=== PATIENT | female | born 1960 | race Caucasian/White ===

== ENCOUNTER 2016-10-07 13:12 | Inpatient (IN) | payer BC, OTHER ==
[~2016-10-07] VITALS: Ht 157.5 cm; Wt 74.0 kg
[2016-10-07] MEDS ORDERED: SOD CHLORIDE 0.9% 1,000 ML IV STA (13:30)
[2016-10-07] MEDS ORDERED: HYDROmorphONE 1 MG/ML SYG IV STA (13:54)
[2016-10-07] MEDS ORDERED: HYDR-906 PO (13:56)
[2016-10-07] MEDS ORDERED: OMEP20CA16 PO (13:56)
[2016-10-07 13:59] LABS: ADD SCAN DIFF NO
[2016-10-07 14:03] LABS: BASOPHIL # 0.1 10^3/ul (0.0-0.1); BASOPHILS % 0.4 % (0.0-2.0); EOSINOPHILS % 0.2 % (0.0-7.0); HEMATOCRIT 38.8 % (37.0-47.0); HEMOGLOBIN 13.1 g/dl (12.0-16.0); LYMPHOCYTES # 3.2 10^3/ul (0.8-2.9); LYMPHOCYTES % 22.9 % (15.0-51.0); MEAN CORPUSCULAR HEMOGLOBIN 29.3 pg (29.0-33.0); MEAN CORPUSCULAR HGB CONC 33.8 g/dl (32.0-37.0); MEAN CORPUSCULAR VOLUME 86.8 fl (82.0-101.0); MEAN PLATELET VOLUME 9.9 fl (7.4-10.4); MONOCYTE # 0.9 10^3/ul (0.3-0.9); MONOCYTES % 6.4 % (0.0-11.0); NEUTROPHIL # 9.6 10^3/ul (1.6-7.5); NEUTROPHILS % 69.7 % (39.0-77.0); PLATELET COUNT 278 10^3/UL (140-415); RED BLOOD COUNT 4.47 10^6/ul (4.20-5.40); RED CELL DISTRIBUTION WIDTH 13.7 % (11.5-14.5); WHITE BLOOD COUNT 13.8 10^3/ul (4.8-10.8)
[2016-10-07] MEDS ORDERED: ONDANSETRON 4 MG INJ IV STA (14:08)
[2016-10-07 14:11] LABS: ALBUMIN 3.9 g/dl (3.3-4.9); CHLORIDE 105 mmol/L (97-110); INR 1.01; PROTIME 13.3 Sec (12.2-14.2)
[2016-10-07 14:12] LABS: POTASSIUM 3.8 mmol/L (3.5-5.1); SODIUM 138 mmol/L (135-144)
[2016-10-07 14:14] LABS: ALBUMIN/GLOBULIN RATIO 1.02; ALKALINE PHOSPHATASE 80 IU/L (42-121); ANION GAP 13 (8-16); ASPARTATE AMINO TRANSFERASE 17 IU/L (15-46); BILIRUBIN,INDIRECT 0.4 mg/dl (0-1.1); BILIRUBIN,TOTAL 0.4 mg/dl (0.2-1.3); BLOOD UREA NITROGEN 6 mg/dl (7-20); CARBON DIOXIDE 24 mmol/L (21-31); CREATININE 0.68 mg/dl (0.44-1.00); TOTAL PROTEIN 7.7 g/dl (6.1-8.1)
[2016-10-07 14:15] LABS: ALANINE AMINOTRANSFERASE 14 IU/L (13-69); CALCIUM 8.8 mg/dl (8.4-10.2); GLUCOSE 98 mg/dl (70-220)
--- NOTE | 2016-10-07 14:23 | ERA ---
ER Documentation Chief Complaint Date/Time DATE: 10/07/16 TIME: 14:20 Chief Complaint low abd pain pelvic pain for 2 day,vag bleed and dysuria. mild fever HPI 56-year-old woman brought in by family members for generalized weakness and dizziness 2-3 days. She said suprapubic abdominal pain which has been severe and has had postmenopausal vaginal bleeding daily for the last 4-5 days. She also complains of dysuria for the last 2 days. She has had low-grade fevers at home, no other vaginal discharge, no loss of consciousness no complaints of chest pain or shortness of breath, no weight loss. Patient is otherwise generally healthy. ROS All systems reviewed and are negative except as per history of present illness. Medications Home Meds Reported Medications Omeprazole* (Omeprazole*) 20 Mg Capsule.dr, 20 MG PO AC BREAKFAST, #30 CAP 10/07/16 Hydrocodone/Acetaminophen ([place] 5-325 Tablet) 1 Each Tablet, 1 EACH PO Q4H WHILE AWAKE, TAB 10/07/16 Allergies Allergies: Coded Allergies: No Known Allergy (Unverified , 10/07/16) PMhx/Soc None Medical and Surgical Hx: pt denies Medical Hx, pt denies Surgical Hx Hx Alcohol Use: No Hx Substance Use: No Hx Tobacco Use: No Smoking Status: Never smoker FmHx Family History: No diabetes Physical Exam Vitals Vital Signs Date Time Temp Pulse Resp B/P Pulse Ox O2 Delivery O2 Flow Rate FiO2 10/07/16 16:00 98.9 78 20 105/83 97 Room Air 10/07/16 13:16 100.0 105 21 127/76 99 Physical Exam GENERAL: Well-developed, well-nourished, dehydrated, in moderate discomfort HEENT: Dry mucous membranes, pale conjunctiva, no cervical spine tenderness or step-off deformities, no goiter, no jaundice or icterus, extraocular movements intact without pain. No submandibular induration, and no pharyngeal erythema NEURO: Alert and oriented 3, cranial nerves II through XII intact bilaterally, pupils equal round reactive to light, no focal deficits or facial asymmetry, sensation intact distally Strength 5/5 in upper and lower extremities bilaterally CARDIAC: Regular rate and rhythm, no murmurs rubs or gallops LUNGS: Clear bilaterally no wheezing crackles or stridor ABDOMEN: Soft nontender, no guarding, no rigidity, no rebound, no psoas sign no obturator sign. Normoactive bowel sounds SKIN: Warm and dry to touch, no abrasions, contusions, or hematomas, no lacerations, no ecchymosis, no target lesions, and without ulcers EXTREMITIES: No clubbing cyanosis or edema, calves are bilaterally symmetrical, no Homans sign, no popliteal cord sign. Distal pulses equal and bilateral PSYCH: Normal affect without agitation or irritability Result Diagram: 10/07/16 1350 10/07/16 1350 Results 24 hrs Laboratory Tests Test 10/07/16 13:50 10/07/16 15:07 White Blood Count 13.810^3/ul Red Blood Count 4.4710^6/ul Hemoglobin 13.1g/dl Hematocrit 38.8% Mean Corpuscular Volume 86.8fl Mean Corpuscular Hemoglobin 29.3pg Mean Corpuscular Hemoglobin Concent 33.8g/dl Red Cell Distribution Width 13.7% Platelet Count 58627^3/UL Mean Platelet Volume 9.9fl Neutrophils % 69.7% Lymphocytes % 22.9% Monocytes % 6.4% Eosinophils % 0.2% Basophils % 0.4% Nucleated Red Blood Cells % 0.0/100WBC Neutrophils # 9.610^3/ul Lymphocytes # 3.210^3/ul Monocytes # 0.910^3/ul Eosinophils # 0.010^3/ul Basophils # 0.110^3/ul Nucleated Red Blood Cells # 0.010^3/ul Prothrombin Time 13.3Sec Prothrombin Time Ratio 1.0 INR International Normalized Ratio 1.01 Sodium Level 138mmol/L Potassium Level 3.8mmol/L Chloride Level 105mmol/L Carbon Dioxide Level 24mmol/L Anion Gap 13 Blood Urea Nitrogen 6mg/dl Creatinine 0.68mg/dl Glucose Level 98mg/dl Calcium Level 8.8mg/dl Total Bilirubin 0.4mg/dl Direct Bilirubin 0.00mg/dl Indirect Bilirubin 0.4mg/dl Aspartate Amino Transf (AST/SGOT) 17IU/L Alanine Aminotransferase (ALT/SGPT) 14IU/L Alkaline Phosphatase 80IU/L Troponin I < 0.012ng/ml Total Protein 7.7g/dl Albumin 3.9g/dl Globulin 3.80g/dl Albumin/Globulin Ratio 1.02 Lipase 38U/L Urine Color DK. RED Urine Clarity BLOODY Urine pH 6.5 Urine Specific [place] 1.010 Urine Ketones 15 Urine Nitrite POSITIVE Urine Bilirubin 2+ Urine Ictotest NEGATIVE Urine Urobilinogen 2.0 E.U./dL Urine Leukocyte Esterase 3+ Urine Microscopic RBC >200/HPF Urine Microscopic WBC >50/HPF Urine Squamous Epithelial Cells MODERATE Urine Bacteria MODERATE Urine Hemoglobin 3+ Urine Glucose NEGATIVE% Urine Total Protein 4+ Current Medications Medications (Trade) Dose Ordered Sig/Stacey Route PRN Reason Start Time Stop Time Status Last Admin Dose Admin Sodium Chloride (NS) 1,000 ml @ 1,000 mls/hr Q1H STAT IV 10/07/16 13:30 10/07/16 14:29 DC 10/07/16 13:59 Hydromorphone HCl (Dilaudid) 1 mg ONCE STAT IV 10/07/16 13:54 10/07/16 13:55 DC 10/07/16 13:59 Ondansetron HCl 4 mg 4 mg ONCE STAT IV 10/07/16 14:08 10/07/16 14:09 DC 10/07/16 14:12 Ceftriaxone Sodium (Rocephin) 50 ml @ 100 mls/hr ONCE ONCE IVPB 10/07/16 16:00 10/07/16 16:29 Procedures/MDM IV line was established patient was placed on 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 EKG performed, read by me: 85 bpm, normal sinus rhythm, normal axis, no acute ST segment changes, narrow QRS complex, with good R-wave progression in precordial leads. Administered 1 L normal saline intravenously, hydromorphone 1 mg IV, Zofran 4 mg IV with good effect. CBC reveals a leukocytosis of 14, otherwise normal, electrolytes normal, liver function tests normal, troponin negative. Urinalysis was positive for infection. Nonobstetric pelvic ultrasound was performed revealing heterogeneous uterus and a large uterine fibroid. Please refer to radiologist dictation for full report. I administered ceftriaxone 1 g IV for UTI. I obtained gynecology consultation with Dr. Ramesh, we spoke about the patient 's presentation, symptomatology, and ultrasound findings. He kindly agreed to consult the patient. Patient admitted to [facility] under hospitalist for continued IV hydration and medical management. Departure Diagnosis: Primary Impression: Vaginal bleeding Additional Impressions: Dehydration Uterine fibroid Qualified Code: D25.1 - Intramural leiomyoma of uterus UTI (urinary tract infection) Qualified Code: N30.01 - Acute cystitis with hematuria Condition: RANDI Mcgill MD Oct 07, 2016 14:23
[2016-10-07 14:26] LABS: TROPONIN-I < 0.012 ng/ml (0.00-0.12)
[2016-10-07 15:27] LABS: ADD UMIC YES; URINE BILIRUBIN (Dip) 2+ (NEGATIVE); URINE BLOOD (Dip) 3+ (NEGATIVE); URINE COLOR DK. RED (YELLOW); URINE GLUCOSE (Dip) NEGATIVE (NEGATIVE); URINE KETONES (Dip) 15 (NEGATIVE); URINE LEUKOCYTE ESTERASE (Dip) 3+ (NEGATIVE); URINE NITRITE (Dip) POSITIVE (NEGATIVE); URINE TOTAL PROTEIN (Dip) 4+ (NEGATIVE); URINE UROBILINOGEN (Dip) 2.0 E.U./dL (0.1-1.0)
[2016-10-07 15:45] LABS: BACTERIA,URINE MODERATE; ICTOTEST NEGATIVE (NEGATIVE); SQUAMOUS EPITHELIAL CELL,UR MODERATE; URINE RBCS >200 /HPF (0)
[2016-10-07] MEDS ORDERED: CEFTRIAXONE 1 GM/50 ML (PMX) 50 ML IVPB ONE (16:00)
--- NOTE | 2016-10-07 16:01 | RADRPT ---
PROCEDURE: US Pelvis CLINICAL INDICATION: Vaginal bleeding, pelvic pain TECHNIQUE: Multiple sonographic images of the pelvis were obtained utilizing a transabdominal and endovaginal technique. The images were reviewed on a PACS workstation. COMPARISON: None. LMP: 10/05/2016 FINDINGS: The uterus measures 11.8 x 7.6 x 8.6 cm. The endometrial echo complex measures 9 mm in thickness. Several sub-centimeter Nabothian cysts are identified. There is a 4.9 cm posterior intramural fibroid at the level of the upper body. The right ovary measures 2.2 x 1.4 x 1.7 cm. The left ovary measures 2.9 x 1.3 x 1.6 cm. There is no rmal vascular flow in both ovaries. There are no significant ovarian lesions. No significant pelvic free fluid is identified. IMPRESSION: 4.9 cm uterine fibroid. Otherwise, unremarkable pelvic ultrasound. RPTAT: EE Physician Yemi Date Time Electronically viewed and signed by Physician Yemi on 10/07/2016 16:01 [email or web address]
[2016-10-07 17:11] VITALS: TEMP 98.6
[2016-10-07 18:04] VITALS: BP 122/68; RESP 22
[2016-10-07 18:43] VITALS: Ht 157.5 cm; Wt 74.0 kg
[2016-10-07] MEDS ORDERED: DEXTROSE 5%-0.9% NACL 1,000 ML IV SCH (20:30)
[2016-10-07] MEDS ORDERED: ZOLPIDEM 5 MG TAB PO PRN (20:30)
[2016-10-07] MEDS ORDERED: HYDROmorphONE 2 MG/ML SYG IV PRN (20:30)
[2016-10-07] MEDS ORDERED: ACETAMINOPHEN 325 MG TAB PO PRN (20:30)
[2016-10-07 20:33] VITALS: BP 120/77; RESP 18
[2016-10-07] MEDS: ONDANSETRON 4 MG INJ IV PRN (20:44)
[2016-10-07] MEDS ORDERED: PIPER-TAZO 3.375 GM IV (PMX) 100 ML IVPB SCH (21:00)
[2016-10-07] MEDS: PIPER-TAZO 3.375 GM IV (PMX) 100 ML IVPB SCH (21:28)
[2016-10-08] VITALS (14 sets, daily range): BP systolic 91–144; BP diastolic 56–77; PULSE 79–97; RESP 15–20
[2016-10-08] MEDS: PIPER-TAZO 3.375 GM IV (PMX) 100 ML IVPB SCH ×4 (02:11→20:16)
[2016-10-08] MEDS: ONDANSETRON 4 MG INJ IV PRN ×2 (02:11→17:32)
[2016-10-08 06:12] LABS: ADD SCAN DIFF NO
[2016-10-08 06:18] LABS: BASOPHIL # 0.1 10^3/ul (0.0-0.1); BASOPHILS % 0.6 % (0.0-2.0); EOSINOPHILS # 0.1 10^3/ul (0.0-0.5); HEMATOCRIT 34.2 % (37.0-47.0); HEMOGLOBIN 10.9 g/dl (12.0-16.0); LYMPHOCYTES # 3.4 10^3/ul (0.8-2.9); LYMPHOCYTES % 39.8 % (15.0-51.0); MEAN CORPUSCULAR HEMOGLOBIN 28.3 pg (29.0-33.0); MEAN CORPUSCULAR HGB CONC 31.9 g/dl (32.0-37.0); MEAN CORPUSCULAR VOLUME 88.8 fl (82.0-101.0); MEAN PLATELET VOLUME 9.8 fl (7.4-10.4); MONOCYTE # 0.6 10^3/ul (0.3-0.9); MONOCYTES % 7.2 % (0.0-11.0); NEUTROPHIL # 4.4 10^3/ul (1.6-7.5); NEUTROPHILS % 51.2 % (39.0-77.0); PLATELET COUNT 232 10^3/UL (140-415); RED BLOOD COUNT 3.85 10^6/ul (4.20-5.40); RED CELL DISTRIBUTION WIDTH 14.1 % (11.5-14.5); WHITE BLOOD COUNT 8.6 10^3/ul (4.8-10.8)
[2016-10-08 06:32] LABS: POTASSIUM 3.9 mmol/L (3.5-5.1)
[2016-10-08 06:34] LABS: ALBUMIN/GLOBULIN RATIO 0.93; BILIRUBIN,INDIRECT 0.2 mg/dl (0-1.1); BILIRUBIN,TOTAL 0.2 mg/dl (0.2-1.3); CREATININE 0.74 mg/dl (0.44-1.00); TOTAL PROTEIN 6.2 g/dl (6.1-8.1)
--- NOTE | 2016-10-08 07:44 | CONS ---
DATE OF ADMISSION: 10/07/2016 DATE OF CONSULTATION: HISTORY OF PRESENT ILLNESS: The patient is 56 years old. She follows up in my clinic. 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 The patient has abdominal swelling with tenderness in which the patient had ultrasound of the uterus, shows __4. 9 cm uterine mass with the possibility of underlying fibroid at the emergency room with urinary tract infection. The patient had IV Dilaudid for the severe intractable pain. CURRENT MEDICATIONS: Include: 1. Ceftriaxone 1 gram every day. 2. Zofran 4 mg every 4 hours as needed. 3. Dilaudid 1 mg once as needed. 4. Sodium chloride as needed. PAST MEDICAL HISTORY: In the form of low backache. SOCIAL HISTORY: The patient does not smoke, does not drink, does not take any street drugs. She is , has no children. PHYSICAL EXAMINATION: CRANIAL NERVES: Cranial nerve II: Pupils equal on both sides, reactive to light. Cranial nerves III, IV and : Extraocular muscles intact. Cranial nerve V: Equal sensation to face. Cranial nerve VII: Symmetrical face. Cranial nerve VIII: Equal hearing bilaterally. Cranial nerve X: Elevates palate. Cranial XI: Elevates shoulders 5/5. Cranial nerve XII: Straight tongue. MOTOR: Equal on both sides, 5/5. Sensation equal on both sides for light touch and temperature. COORDINATION: [id number] test intact. HEART: Regular rate and rhythm. No murmur, no gallop. LUNGS: Equal breath sounds. No wheeze. ABDOMEN: Distended with tenderness of the right lower quadrant. LOWER EXTREMITIES: 1+ edema. ASSESSMENT AND PLAN: 1. This is a patient 56 years old with vaginal bleeding, probably secondary to intrauterine tumor. Will follow up the patient with gynecology consult for more evaluation and treatment with possibility of underlying uterine mass. Will follow up the patient with an MRI of her abdomen and pelvis. 2. Intractable pain. _Acute Abdoman possible gall bladder stone MRI abdomen the patient IV Dilaudid as needed. 3. Keep the patient on Zofran for nausea 4 mg every 4 hours as needed. 4. Urinary tract infection. Keep the patient on Zosyn twice a day IV as needed. 5. Dehydration. Start the patient on IV fluid. 5. Will keep the patient on deep venous thrombosis prophylaxis as well as decubitus ulcer prophylaxis. Again, thank you for asking me to see the patient with you. Dictated By: LARISA INTERIANO/JAYDEN Conf#: [id number] DID#: [id number] MTDD
[2016-10-08] MEDS: D5W-0.45 NACL + KCL 20 MEQ 1,000 ML IV SCH ×2 (11:30→13:58)
[2016-10-08] MEDS ORDERED: HYDROmorphONE 1 MG/ML SYG IV PRN (11:30)
--- NOTE | 2016-10-08 16:00 | RADRPT ---
PROCEDURE: MRI Abdomen and Pelvis without contrast. CLINICAL INDICATION: Abdominal and pelvic pain, vaginal bleeding TECHNIQUE: MRI of the abdomen and pelvis was performed. MRCP sequences were performed as well. P atient was examined without IV contrast. Images were reviewed on a high-resolution PACS workstation. COMPARISON: Ultrasound, 10/07/2016 FINDINGS: MRI abdomen: The gallbladder is distended and contains multiple gallstones. No gallbladder wall thickening or pe richolecystic inflammation is identified. There is no intra or extrahepatic biliary dilatation. No common duct stone, stricture or filling defect is identified. Liver, biliary tree, pancreas, splee n, adrenal glands and kidneys are unremarkable. There is no obstructive uropathy. Small hiatal hernia is noted. The stomach is otherwise grossly unremarkable. Abdominal aorta is no rmal in caliber. No retroperitoneal or yi hepatis lymphadenopathy is identified. MRI pelvis: No bowel obstruction, ascites or abscess is identified. Uterus is enlarged, and demonstrates a poor ly defined area of junctional zone thickening and cystic change in the anterior fundus, spanning rosaura roximately 5 x 5 x 6 cm, suggestive of focal adenomyosis. Multiple subserosal fundal fibroids are s een as well measuring up to 2.0 cm. No definite evidence of endometrial thickening is seen. Cervic al Nabothian cysts are incidentally noted. Urinary bladder and urethra are normal in appearance. N o pelvic free fluid or lymphadenopathy is identified. The surrounding osseous structures are remarkable for mild degenerative spondylosis of the spine. N o focal osseous lesion is identified. IMPRESSION: 1. Cholelithiasis is noted without evidence for cholecystitis. 2. No biliary dilatation or choledocholithiasis is identified. 3. Small hiatal hernia is noted. 4. Uterus is enlarged and demonstrates a poorly defined area of junctional zone thickening and cyst ic change in the anterior fundus, measuring approximately 6 cm in maximal dimension, suggestive of f ocal adenomyosis. 5. Scattered subserosal uterine fibroids are seen as well measuring up to 2.0 cm. RPTAT: HDWR .Rome Sanchez MD, MD Date Time Electronically viewed and signed by .Rome Sanchez MD, MD on 10/08/2016 16:00 .Soha
[2016-10-08] MEDS ORDERED: PROPOFOL 20 ML ONE (16:33)
[2016-10-08] MEDS ORDERED: ONDANSETRON 4 MG INJ ONE (16:33)
[2016-10-08] MEDS ORDERED: FENTAnyl 50 MCG/ML VIAL ONE (16:33)
[2016-10-08] MEDS ORDERED: DEXAMETHASONE 4 MG/ML 1 ML INJ ONE (16:33)
[2016-10-08] MEDS ORDERED: MIDAZOLAM 1 MG/ML 2 ML INJ ONE (16:33)
[2016-10-08] MEDS ORDERED: DEXTROSE 5%-LR 1,000 ML IV SCH (17:17)
[2016-10-08] MEDS ORDERED: ONDANSETRON 4 MG INJ IV PRN (17:30)
[2016-10-08] MEDS ORDERED: HYDROmorphONE (0.2 MG/ML) 10ML SYG IV PRN ×3 (17:30)
[2016-10-08] MEDS ORDERED: DIPHENHYDRAMINE 50 MG INJ IV PRN (17:30)
[2016-10-08] MEDS ORDERED: MIDAZOLAM 1 MG/ML 2 ML INJ IV PRN (17:30)
[2016-10-08] MEDS ORDERED: KETOROLAC 30 MG INJ IV ONE (17:30)
[2016-10-08] MEDS ORDERED: EPHEDrine SULFATE 50 MG/5 ML SYG IV PRN (17:30)
[2016-10-08] MEDS ORDERED: OXYCODONE/ACETAMINOPHEN (10/325) TAB PO PRN ×2 (17:30)
[2016-10-08] MEDS ORDERED: MEPERIDINE 25 MG INJ IV PRN (17:30)
--- NOTE | 2016-10-08 17:39 | PDOCDIS ---
Discharge Instructions CONDITION Patient Condition: Good HOME CARE INSTRUCTIONS: Special Diet: REGULAR DIET ACTIVITY: Activity Restrictions: Slowly Increase Activity Rest between Activity Avoid heavy lifting No Sexual Activity (4 weeks ) Avoid Heavy Housework FOLLOW UP/APPOINTMENTS Appointments Follow up with [facility] as out-pt Follow up with PCP as out-pt OTHER ORDERS: Other Orders: In case of having any vaginal bleed , return to emergency room immediately SANFORD GAMEZ MD Oct 08, 2016 17:39
[2016-10-08] MEDS ORDERED: ASC500 PO (17:42)
[2016-10-08] MEDS ORDERED: ONDA-43 PO (17:42)
[2016-10-08] MEDS ORDERED: CIPR500T4 PO (17:42)
[2016-10-08] MEDS ORDERED: FER325 PO (17:42)
--- NOTE | 2016-10-08 17:43 | CONS ---
Date/Time of Note Date/Time of Note DATE: 10/08/16 TIME: 17:29 Consultation Date/Type/Reason Admit Date/Time Oct 07, 2016 at 16:19 Reason for Consultation This patient is a 53 years old 0 para 0 who came to the emergency room complaining of vaginal bleeding abdominal pain dizziness and several other complaints she was then admitted in the hospital for workup and treatment. 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 examine her she denies using any hormone pills On physical examination she is a well-developed somewhat overweight lady who is not in any acute distress her ear nose throat appear to be normal neck is normal no neck vein distention no thyromegaly no lymph node enlargement in the body Her chest is clear to auscultation and palpation Heart normal sinus rhythm no murmur Breasts are soft free of masses nipples are intact Abdomen is soft no organomegaly no tenderness no rebound could be appreciated Extremities no edema no varicosities knee-jerk reflexes are normal Pelvic examination vulva and vagina appears to be normal she does have some degree of vaginal bleeding and tightness of the introitus on pelvic exam cervix is palpated and appears to be Uterus enlarged about 8-9 weeks gestational size but is firm No adnexal enlargement Impression postmenopausal bleeding uterine fibroid Disposition we will plan to do a endometrial biopsy or D&C End of dictation thank you Laboratory Tests Test 10/08/16 05:30 10/08/16 05:42 White Blood Count 8.610^3/ul Red Blood Count 3.8510^6/ul Hemoglobin 10.9g/dl Hematocrit 34.2% Mean Corpuscular Volume 88.8fl Mean Corpuscular Hemoglobin 28.3pg Mean Corpuscular Hemoglobin Concent 31.9g/dl Red Cell Distribution Width 14.1% Platelet Count 09530^3/UL Mean Platelet Volume 9.8fl Neutrophils % 51.2% Lymphocytes % 39.8% Monocytes % 7.2% Eosinophils % 1.0% Basophils % 0.6% Nucleated Red Blood Cells % 0.0/100WBC Neutrophils # 4.410^3/ul Lymphocytes # 3.410^3/ul Monocytes # 0.610^3/ul Eosinophils # 0.110^3/ul Basophils # 0.110^3/ul Nucleated Red Blood Cells # 0.010^3/ul Sodium Level 140mmol/L Potassium Level 3.9mmol/L Chloride Level 108mmol/L Carbon Dioxide Level 25mmol/L Anion Gap 11 Blood Urea Nitrogen 6mg/dl Creatinine 0.74mg/dl Glucose Level 104mg/dl Calcium Level 8.0mg/dl Total Bilirubin 0.2mg/dl Direct Bilirubin 0.00mg/dl Indirect Bilirubin 0.2mg/dl Aspartate Amino Transf (AST/SGOT) 10IU/L Alanine Aminotransferase (ALT/SGPT) 20IU/L Alkaline Phosphatase 60IU/L Total Protein 6.2g/dl Albumin 3.0g/dl Globulin 3.20g/dl Albumin/Globulin Ratio 0.93 Current Medications Medications (Trade) Dose Ordered Sig/Stacey Route PRN Reason Start Time Stop Time Status Last Admin Dose Admin Sodium Chloride (NS) 1,000 ml @ 1,000 mls/hr Q1H STAT IV 10/07/16 13:30 10/07/16 14:29 DC 10/07/16 13:59 1,000 MLS/HR Hydromorphone HCl (Dilaudid) 1 mg ONCE STAT IV 10/07/16 13:54 10/07/16 13:55 DC 10/07/16 13:59 1 MG Ondansetron HCl 4 mg 4 mg ONCE STAT IV 10/07/16 14:08 10/07/16 14:09 DC 10/07/16 14:12 4 MG Ceftriaxone Sodium (Rocephin) 50 ml @ 100 mls/hr ONCE ONCE IVPB 10/07/16 16:00 10/07/16 16:29 DC 10/07/16 16:34 100 MLS/HR Ondansetron HCl (Zofran Inj) 4 mg Q4H PRN IV NAUSEA AND/OR VOMITING 10/07/16 20:30 10/08/16 02:11 4 MG Hydromorphone HCl 2 mg 2 mg Q3H PRN IV PAIN 10/07/16 20:30 10/08/16 11:25 DC 10/07/16 20:37 2 MG Piperacillin Sod/ Tazobactam Sod 100 ml @ 25 mls/hr Q12 IVPB 10/07/16 21:00 10/07/16 21:00 DC Dextrose/Sodium Chloride (D5-NS) 1,000 ml @ 75 mls/hr [id number] IV 10/07/16 20:30 10/08/16 11:29 DC 10/07/16 21:27 75 MLS/HR Zolpidem Tartrate (Ambien) 10 mg HS PRN PO INSOMNIA 10/07/16 20:30 Acetaminophen 650 mg 650 mg Q4H PRN PO PAIN AND OR ELEVATED TEMP 10/07/16 20:30 Piperacillin Sod/ Tazobactam Sod (Zosyn 3.375gm/ 100 ml (Pmx)) 100 ml @ 200 mls/hr Q6 IVPB 10/07/16 21:00 10/08/16 14:00 200 MLS/HR Hydromorphone HCl 1 mg 1 mg Q4H PRN IV PAIN 10/08/16 11:30 Potassium Chloride/Dextrose/ Sod Cl 1,000 ml @ 75 mls/hr [id number] IV 10/08/16 11:30 10/08/16 17:24 DC 10/08/16 13:58 75 MLS/HR Propofol (Diprivan) 20 ml @ ud STK-MED ONCE .ROUTE 10/08/16 16:33 10/08/16 16:34 DC Fentanyl (Sublimaze) 100 mcg STK-MED ONCE .ROUTE 10/08/16 16:33 10/08/16 16:34 DC Midazolam HCl (Versed) 2 mg STK-MED ONCE .ROUTE 10/08/16 16:33 10/08/16 16:34 DC Ondansetron HCl (Zofran Inj) 4 mg STK-MED ONCE .ROUTE 10/08/16 16:33 10/08/16 16:34 DC Dexamethasone (Decadron) 4 mg STK-MED ONCE .ROUTE 10/08/16 16:33 10/08/16 16:34 DC Hydromorphone HCl (Dilaudid (Rec)) 0.2 mg PACU ORDER PRN IV MILD PAIN LEVEL 1-3 10/08/16 17:30 10/08/16 22:00 Hydromorphone HCl (Dilaudid (Rec)) 0.4 mg PACU ORDER PRN IV MODERATE PAIN LEVEL 4-6 10/08/16 17:30 10/08/16 22:00 Hydromorphone HCl (Dilaudid (Rec)) 0.6 mg PACU ORDER PRN IV SEVERE PAIN LEVEL 7-10 10/08/16 17:30 10/08/16 22:00 Ketorolac Tromethamine (Toradol) 30 mg PACU ORDER ONCE IV 10/08/16 17:30 10/08/16 17:31 Ondansetron HCl (Zofran Inj) 4 mg PACU ORDER PRN IV NAUSEA AND/OR VOMITING 10/08/16 17:30 10/08/16 22:00 Ephedrine Sulfate 5 mg PACU ORDER PRN IV MAP LESS THAN 60 10/08/16 17:30 10/08/16 22:00 Meperidine HCl (Demerol) 25 mg PACU ORDER PRN IV POST-OP RIGORS 10/08/16 17:30 10/08/16 22:00 Diphenhydramine HCl (Benadryl) 25 mg PACU ORDER PRN IV PRURITUS 10/08/16 17:30 10/08/16 23:59 Midazolam HCl 0.5 mg 0.5 mg PACU ORDER PRN IV ANXIETY 10/08/16 17:30 10/08/16 22:23 Dextrose/Lactated Ringer's (D5-Lr) 1,000 ml @ 125 mls/hr Q8H IV 10/08/16 17:17 Oxycodone/ Acetaminophen 1 tab 1 tab Q3H PRN PO PAIN 10/08/16 17:30 Dextrose/Lactated Ringer's (D5-Lr) 1,000 ml @ 125 mls/hr Q8H IV 10/08/16 17:17 10/08/16 17:24 DC Oxycodone/ Acetaminophen (Endocet (10/ 325)) 1 tab Q3H PRN PO PAIN 10/08/16 17:30 Constitutional: other (General body ache especially on the abdominal area and back) Eyes: No discharge, No no complaints, No other, No pain, No redness, No visual change ENT: No bleeding, No congestion, No discharge, No dysphagia, No no complaints, No other, No pain, No sore throat Respiratory: No cough, No no complaints, No other, No pain, No pleuritic pain, No shortness of breath, No sputum, No wheezing Cardiovascular: No chest pain, No edema, No lightheadedness, No no complaints, No orthopenea, No other, No palpitations, No paroxysmal nocturnal dyspnea Gastrointestinal: No blood, No constipation, No decreased appetite, No diarrhea , No flatus, No nausea, No no complaints, No other, No pain, No passing stool, No vomiting Genitourinary: other (On pelvic exam as I mentioned she has vaginal bleeding uterus is enlarged about 8 weeks gestation adnexa were normal) Musculoskeletal: other (Complaining of generalized pain in her back and up), No back pain, No bone/joint pain, No neck pain, No no complaints, No restricted range of motion, No swelling Skin: No bruising, No erythema, No laceration, No no complaints, No other, No pruritis, No rash, No skin lesions Neurologic: No confusion, No dizziness, No focal-weakness, No headache, No no complaints, No other, No seizure, No syncope Social History Smoking Status: Never smoker Exam/Review of Systems Vital Signs Vitals Vital Signs Date Time Temp Pulse Resp B/P Pulse Ox O2 Delivery O2 Flow Rate FiO2 10/08/16 07:00 99.0 80 20 102/56 96 10/07/16 17:11 Room Air Intake and Output 10/07/16 10/07/16 10/08/16 15:00 23:00 07:00 Intake Total 100 ml 575 ml Balance 100 ml 575 ml Results Result Diagram: 10/08/16 0530 10/08/16 0542 Results 24 hrs Laboratory Tests Test 10/08/16 05:30 10/08/16 05:42 White Blood Count 8.6 # Red Blood Count 3.85 L Hemoglobin 10.9 L Hematocrit 34.2 L Mean Corpuscular Volume 88.8 Mean Corpuscular Hemoglobin 28.3 L Mean Corpuscular Hemoglobin Concent 31.9 L Red Cell Distribution Width 14.1 Platelet Count 232 Mean Platelet Volume 9.8 Neutrophils % 51.2 Lymphocytes % 39.8 Monocytes % 7.2 Eosinophils % 1.0 Basophils % 0.6 Nucleated Red Blood Cells % 0.0 Neutrophils # 4.4 Lymphocytes # 3.4 H Monocytes # 0.6 Eosinophils # 0.1 Basophils # 0.1 Nucleated Red Blood Cells # 0.0 Sodium Level 140 Potassium Level 3.9 Chloride Level 108 Carbon Dioxide Level 25 Anion Gap 11 Blood Urea Nitrogen 6 L Creatinine 0.74 Glucose Level 104 Calcium Level 8.0 L Total Bilirubin 0.2 Direct Bilirubin 0.00 Indirect Bilirubin 0.2 Aspartate Amino Transf (AST/SGOT) 10 L Alanine Aminotransferase (ALT/SGPT) 20 Alkaline Phosphatase 60 Total Protein 6.2 # Albumin 3.0 L Globulin 3.20 Albumin/Globulin Ratio 0.93 Medications Medications Current Medications Ondansetron HCl (Zofran Inj) 4 mg Q4H PRN IV NAUSEA AND/OR VOMITING Last administered on 10/08/16 02:11; Admin Dose 4 MG; Start 10/07/16 at 20:30 Zolpidem Tartrate (Ambien) 10 mg HS PRN PO INSOMNIA; Start 10/07/16 at 20:30 Acetaminophen 650 mg 650 mg Q4H PRN PO PAIN AND OR ELEVATED TEMP; Start at 20:30 Piperacillin Sod/ Tazobactam Sod (Zosyn 3.375gm/ 100 ml (Pmx)) 100 ml @ 200 mls /hr Q6 IVPB Last administered on 10/08/16 14:00; Admin Dose 200 MLS/HR; Start 10/07/16 at 21:00 Hydromorphone HCl 1 mg 1 mg Q4H PRN IV PAIN; Start 10/08/16 at 11:30 Dextrose/Lactated Ringer's (D5-Lr) 1,000 ml @ 125 mls/hr Q8H IV ; Start at 17:17 Oxycodone/ Acetaminophen (Endocet (10/ 325)) 1 tab Q3H PRN PO PAIN; Start 10/08 at 17:30 Oxycodone/ Acetaminophen (Endocet (10/ 325)) 1 tab Q3H PRN PO PAIN; Start 10/08 at 17:30 SENTHIL PAGE MD Oct 08, 2016 17:40
--- NOTE | 2016-10-08 17:44 | OPR ---
DATE OF OPERATION: INDICATION: This patient is a 56-year-old nulliparous with heavy vaginal bleeding for 5 days. She is being worked up for her several other complaints including abdominal pain,dizziness,back pain, low back pain . She had an MRI right before the surgery and we did the surgery due to postmenopausal vaginal bleeding. SURGEON: Senthil Cook MD DESCRIPTION OF PROCEDURE: Under satisfactory general anesthesia, the patient was placed in lithotomy position. The vaginal area was prepped and the patient was draped. Before the start of D and C, a bimanual pelvic examination was performed. Uterus appeared to be about eight weeks gestational size with some irregularity. Adnexa appeared to be normal. A weighted speculum was placed inside the vagina and the cervix was picked up via tenaculum. The cervical canal was dilated up to 8 mm. Then, using an 8 and then 6 mm cannula, the entire uterine cavity was suctioned . Then, a small sharp curette was used to ensure complete evacuation of excessive tissue. She was given a gram of Ancef as a prophylactic measure. The patient tolerated the procedures well and was transferred to the recovery room in a stable condition. The specimen was sent for pathology. Dictated By: SENTHIL VELEZ/JAYDEN Conf#: [id number] DID#: [id number] MTDD
--- NOTE | 2016-10-08 18:30 | DS ---
DATE OF ADMISSION: 10/07/2016 DATE OF DISCHARGE: 10/08/2016 ADMITTING PHYSICIAN: Manjit Eugene MD CONSULT: Medical team. DISCHARGE DIAGNOSES: 1. Urinary tract infection. 2. Uterine fibroid. 3. Menorrhagia secondary to #2. 4. Asymptomatic cholelithiasis. MEDICATIONS: 1. Vitamin C. 2. Ciprofloxacin. 3. Ferrous sulfate. 4. Jasper. 5. Omeprazole. 6. Zofran. ALLERGIES: NO KNOWN DRUG ALLERGIES. HOSPITAL COURSE: This is a 56-year-old female with past medical history of GERD, arthritis who has been complaining of having abdominal plan x2 days with vaginal bleeding, dysuria and mild fever, was brought into the emergency room with her family on 10/07/2016. The patient stated the abdominal pa in was suprapubic and has been severe. She has postmenopausal vaginal bleeding x4 to 5 days and dys uria x2 days. Upon arrival to emergency room, patient had low grade fever, temperature 100.0. WBC was 13.8. BUN of 6. Urinalysis showed positive nitrite, bilirubin positive, leukocyte esterase pos itive 3, RBCs greater than 200, WBCs greater than 50. The patient was treated with Rocephin in the course of the emergency room. She was admitted by Dr. Eugene and was started on Zosyn. POULTRY FARM SUPERVISOR w as consulted from course of the emergency room. Pelvic ultrasound was obtained, which showed 4.9 cm uterine fibroid. MRI of the pelvis was obtained which showed cholelithiasis noted without evidence of cholecystitis, no biliary dilation or choledocholithiasis, small hiatal hernia. Uterus is enlar ged and demonstrated poorly defined area on junctional zone change anterior fundus measuring a pproximately 6 cm in maximal dimension suggestive of focal adenomyosis, scattered several uterine fi broids are seen measuring up to 2 cm. The patient was made n.p.o., IV fluid, pain medication and af ter discussing the mode of treatment with the patient by the POULTRY FARM SUPERVISOR team and discussing the risks an d benefits of the D and C, the patient agreed to proceed with this surgical intervention. The patie nt was taken to OR by POULTRY FARM SUPERVISOR team and had a D and C, which patient tolerated the procedure well. Th ere was minimal bleed. The patient was taken to recovery room in stable condition. At this time, the patient's temperature is afebrile 98.7, pulse 88, blood pressure 139/67, oxygen sa turation 96%. At this time, the patient is cleared as per [facility] [employer] standpoint to be discharged 2 to 4 ho urs postoperatively. I am going to order hemoglobin and hematocrit prior to discharge. The patient also will be discharged on ferrous sulfate and ciprofloxacin for her urinary tract infection. At t his time, the patient is medically stable for discharge with close followup with [facility] [employer] and primary car e physician. Her vitals are stable. Her WBC is 8.6, hemoglobin 10.9, hematocrit 34.2, platelets 23 2. Sodium 140, potassium 3.9, chloride 108, bicarbonate 25, BUN 6, creatinine 0.74, glucose 104. L FTs all within normal limits. I have instructed the patient in case the patient has any vaginal ble eding, she needs to return to emergency room immediately. Dictated By: SANFORD GAMEZ MD PN/NTS Conf#: [id number] DID#: [id number] CC: [facility];*EndCC*
[2016-10-08 20:07] LABS: HEMATOCRIT 35.3 % (37.0-47.0); HEMOGLOBIN 11.5 g/dl (12.0-16.0)
[2016-10-09] MEDS: PIPER-TAZO 3.375 GM IV (PMX) 100 ML IVPB SCH ×3 (00:20→13:00)
[2016-10-09] MEDS: DEXTROSE 5%-LR 1,000 ML IV SCH ×4 (00:20→11:20)
[2016-10-09 07:40] VITALS: BP 107/63; RESP 16
--- NOTE | 2016-10-09 13:37 | SP ---
DATE OF PROCEDURE: HISTORY OF PRESENT ILLNESS: The patient is a 56-year-old lady with a past medical history of abdomi nal pain, admitted to [facility] with the patient having vaginal bleeding, right a bdominal pain in which required IV diluted as well as IV fluids and antibiotics in the form of Zosyn , in which we ordered for her an MRI over her abdomen after the patient had ultrasound. The ultraso und shows ovarian mass around 4.9 cm. The MRI done shows gallbladder stones. The patient had also D and C today by DRILL RUNNER HELPER. MEDICATIONS: The patient is on current medications which include 1. Zosyn 3.75 mg. 2. Dilaudid 1 mg every 4 hours as needed. 3. Zofran 4 mg every 4 hours as needed. 4. IV fluids D5 normal saline. 5. Tylenol 650 mg every 4 hours as needed. 6. Oxycodone as needed. 7. Ambien 10 mg once at night as needed. PHYSICAL EXAMINATION: GENERAL: On exam today the patient is alert, awake, oriented to time, place and person. Normal spe ech and normal language. CRANIAL NERVES: Cranial nerve II: Pupils equal on both sides, reactive to light. Cranial nerves I II, IV, and : Extraocular muscles intact. Cranial nerve V: Equal sensation to face. Cranial ne rve VII: Symmetrical face. Cranial nerve VIII: Equal hearing bilaterally. Cranial nerve X: ____ . Cranial nerve XI: ____. Motor exam equal on both sides with decreased right hip flexion. Sensa tion equal on both sides. HEART: Regular rate and rhythm. LUNGS: Equal breath sounds. ABDOMEN: With abdominal pain on the right upper quadrant. ASSESSMENT AND PLAN 1. This patient is a 56-year-old with acute abdominal pain in which the ultrasound shows only ovari an mass 4.9 cm; however, the MRI which was ordered shows multiple gallbladder stones, in which I am going to order for her gastroenterology surgeon to evaluate her gallbladder and give us his opinion for acute abdomen. 2. Status post vaginal bleeding with gynecology consult dilatation and curettage was done today and biopsy was sent this to the laboratory from her endometrium. 3. Urinary tract infection, which the patient is on IV antibiotic, Zosyn. We will continue. 4. Severe pain, in which the patient required Dilaudid pending the surgery consult. 5. Nausea. We will keep the patient on Zofran 4 mg every 4 hours as needed. I counseled the patient and her , as well as her sister about her status. Again, thank you. Dictated By: LARISA INTERIANO/JAYDEN Conf#: [id number] DID#: [id number]
--- NOTE | 2016-10-09 17:42 | PN ---
Date/Time of Note Date/Time of Note DATE: 10/09/16 TIME: 17:40 OB Subjective Subjective Subjective Patient status post D&C ; pathology report is pending She is stable and afebrile Patient is complaining of some upper abdominal pain OB Objective Objective Objective Vital signs stable OB Assessment/Plan Other Assessment: Status post D&C Other plan: Advance diet to regular Encouraged patient to ambulate Patient was counseled that she should follow-up with the pathology report MISAEL GARZA Oct 09, 2016 17:41
--- NOTE | 2016-10-10 03:27 | CONS ---
[facility] INITIAL INPATIENT CONSULTATION NOTE DATE OF CONSULTATION: 10/09/2016 PLACE OF SERVICE: [facility], 6th floor. IMPRESSION AND PLAN: A very pleasant 56-year-old lady with a few comorbid issues including BMI 29.8 as well as symptoms of gastritis and reflux disease in the past and a significant urinary tract infection with multiple organisms that has responded to intravenous antimicrobials as well as menorrhagia that required a D and C during this hospitalization, presenting with asymptomatic cholelithiasis. There is no evidence of cholecystitis. There is no indication for acute surgical intervention. I strongly recommended that the patient considers undergoing both upper and lower endoscopy mainly to rule out gastritis and check for H. pylori and check for any ulcers as well as assess the status of the GE junction and look for Kidd's esophagus. She should also have a colonoscopy during the same procedure in order to have her surveillance colonoscopy done. If the patient has symptoms and signs consistent with gastritis that can be treated further medically and has no other symptoms from her gallbladder, there would be no reason to remove her gallbladder at this time. If, however, the symptoms are not related to her stomach or the stomach appears to be benign, then I would recommend an elective laparoscopic cholecystectomy which I am happy to do if the patient and family choose to do so, and we can certainly arrange for this as an outpatient. I explained all of this to the patient and her family that included her and answered all of their questions to the best of my ability. The patient and family appeared to understand and agreed with the plans. With above assessment, I have recommended the followin. Agree with management of urinary tract infection and please arrange for outpatient followup. 2. Strongly recommend upper and lower endoscopy to be done electively in the next few weeks. 3. Laparoscopic cholecystectomy if above do not explain the patient's symptoms or if we can attribute her symptoms further to the gallbladder. This can be arranged as an outpatient, and I would be happy to do the operation if the family chooses to come and visit us in the office. Thank you again for allowing us to participate in the care of this very pleasant lady and her wonderful family. If there are any questions, please feel free to call me at [phone]. TOTAL VISIT TIME: 45 minutes of which more than half was spent in [id number] discussion with the patient, discussions with her family, as well as coordination of care between multiple physicians and providers. UPDATED CLINICAL SUMMARY: The patient is a very pleasant 56-year-old lady with comorbidities including BMI 29.8 as well as history of gastroesophageal reflux disease and on and off abdominal pain, admitted through the emergency department at [facility] on 10/07/2016 with urinary tract infection as well as heavy vaginal bleeding for 5 days status post D and C with a bimanual pelvic examination and a uterus that appeared to be about 8 weeks gestational size with some irregularity. Adnexa appeared to be normal. Pathology is pending. This was done on 10/08/2016. Her initial white blood cell count was 13.8. Chemistry and liver function and injury parameters were normal. Urinalysis showed nitrite positivity as well as leukocyte esterase positivity, and urine cultures show Staphylococcus species and gamma hemolytic strep species. The patient's imaging included a pelvic ultrasound that showed 4.9 cm uterine fibroid, and a pelvic MRI on 10/08/2016 showed cholelithiasis without biliary dilatation or choledocholithiasis. Small hiatal hernia was noted, and an enlarged uterus with a poorly defined area of junctional zone thickening and cystic changes in the anterior fundus noted measuring approximately 6 cm in maximal dimension, suggestive of focal adenomyosis. There were also scattered subserosal uterine fibroids measuring up to 2 cm. The abdominal portion of the MRI again confirmed presence of cholelithiasis without evidence of acute cholecystitis. COMORBIDITIES: 1. BMI 29.8. 2. Small hiatal hernia. 3. Symptoms of gastric reflux as well as gastritis. 4. Abdominal pain associated with food, lasting 2 to 3 hours at times. 5. Urine fibroids. 6. Enlarged uterus status post D and C (path pending). 7. Cholelithiasis without choledocholithiasis and normal biliary system. 8. Urinary tract infection during this admission, treated with intravenous antimicrobials. 9. Menorrhagia secondary to uterine abnormalities. DATE OF ADMISSION: 10/07/2016 HISTORY OF PRESENT ILLNESS: The patient is a very pleasant 56-year-old lady with above-mentioned comorbidities whom we were kindly asked to consult regarding management of newly discovered cholelithiasis. The patient herself reports having symptoms of mid upper abdominal pain, especially with eating spicy foods and having reflux, relieved by belching. Sometimes she has to sleep with her head and shoulders propped up. The pain sometimes lasts 2 to 3 hours. She does not report any right upper quadrant type pain. She has been on omeprazole in the hospital, but I am not clear if she takes those at home. The patient has not had any upper or lower endoscopy. No other symptoms including no fevers or chills, no nausea or vomiting, no changes in bowel or bladder habits or appetite. ALLERGIES: NO KNOWN DRUG ALLERGIES. MEDICATIONS: 1. Vitamin C. 2. Ciprofloxacin. 3. Ferrous sulfate. 4. [place]. 5. Omeprazole. 6. Zofran. SOCIAL HISTORY: The patient lives with her family and does not report any smoking, drinking, or intravenous drug use. FAMILY HISTORY: There is no history of major malignancy, surgical or medical problems in the family. REVIEW OF SYSTEMS: Other than the above-mentioned, there are no other pertinent positives or pertinent negatives in a complete 14-point review of systems. PHYSICAL EXAMINATION: GENERAL: The patient appears to be a very pleasant lady of descent, appearing stated age, sitting in a chair comfortably, and in no acute distress. BMI is 29.8. VITAL SIGNS: Temperature is 98.0, blood pressure 107/63, pulse 78, respiratory rate 16, pulse oximetry 98% on room air. HEENT: Normocephalic and atraumatic. Extraocular muscles and hearing are grossly intact bilaterally and symmetrically. Sclerae are nonicteric. Oral cavity is clear; oral mucosa appeared to be pink and moist. Dentition: fair. NECK: Supple. There is no lymphadenopathy or JVD. There is no submental, submandibular or supraclavicular lymphadenopathy. CHEST: Rises symmetrically with each breath; patient is breathing comfortably. There are no audible wheezes, rales or rhonchi on the gross exam. HEART: Pulse is regular and palpable on the left wrist. Capillary refill was normal. Carotid pulses are palpable bilaterally and symmetrically in the neck. EXTREMITIES: Lower extremities contain no pitting edema around the ankles bilaterally and symmetrically. ABDOMEN: Abdomen is soft, nontender and nondistended. There are no peritoneal signs or guarding. No evidence of ascites, organomegaly, caput medusae, engorged subcutaneous veins, or other abnormalities. SKIN: Appears to be pink and feels warm to touch. NEUROLOGIC: Awake, alert, and follows commands appropriately. LABORATORY VALUES: As above. IMAGING: As above. Note that I personally reviewed all the available and pertinent images, and I agree in general with their overall reported findings. Dictated By: STARLA ENCISO/JAYDEN Conf#: [id number] DID#: [id number] MTDD
--- NOTE | 2016-10-10 05:35 | SP ---
DATE OF PROCEDURE: The patient is 56 years old, admitted with acute abdominal pain, vaginal bleeding the patient has multiple stones in her gallbladder, in which abdominal surgeon was consulted to see the patient. However, the patient was discharged before the consult was done. ASSESSMENT AND PLAN: The patient's diagnoses 1. Multiple gallbladder stones. 2. Acute abdomen. 3. Vaginal bleeding. 4. Dehydration. 5. Urinary tract infection. 6. Fibroid mass. 7. Status post D and C, done by counseling services managerDr. . Dictated By: LARISA INTERIANO/NTS Conf#: [id number] DID#: [id number]
== END 2016-10-09 17:25 | disposition home or self-care (01) | DRG 744 ==
LOC: E/R 13:12 → MS2 16:19
PROVIDERS: ADMIT Specialist; ATTEND Specialist
PROC: 0UDB7ZX Extraction of Endometrium, Via Natural or Artificial Opening, Diagnostic (ICD-10-PCS; principal; 2016-10-08 15:30)
DX: N95.0 Postmenopausal bleeding (principal); N39.0 Urinary tract infection, site not specified; E86.0 Dehydration; R11.0 Nausea; B95.8 Unspecified staphylococcus as the cause of diseases classified elsewhere; B95.4 Other streptococcus as the cause of diseases classified elsewhere; K21.9 Gastro-esophageal reflux disease without esophagitis; K80.20 Calculus of gallbladder without cholecystitis without obstruction
CPT/HCPCS: 36415; 72195; 74181; 76830; 76856; 80053; 81001; 81003; 83690; 84484; 85014; 85018; 85025; 85610; 86850; 86900; 86901; 87086; 88305; 93005; 96374; 96375; J0696; J1100; J1170; J1885; J2250; J2405; J2543; J3010; J3480; J7030; J7042; J7121